=== PATIENT | female | born 1990 | race Caucasian/White ===

== ENCOUNTER 2017-07-05 09:25 | Emergency (ER) | payer BC, OTHER ==
[2017-07-05 09:40] VITALS: BP 129/84
--- NOTE | 2017-07-05 10:32 | UC ---
Skin Complaint HPI - HPI Summary HPI Summary: Pt reports a tick in right lateral abdomen that she tried to removed this morning and is concerned that the head is still attached. - History of Current Complaint Chief Complaint: UCBiteInjury Time Seen by Provider: 07/05/17 10:22 Stated Complaint: TICK BITE Hx Obtained From: Patient Hx Last Menstrual Period: 07/01/17 ?: No Onset/Duration: Sudden Onset Skin Exposure Onset/Duration: Hours Ago Timing: Constant Onset Severity: Mild Current Severity: Mild Location: Discrete - right lateral abdomen Aggravating Factor(s): Nothing Alleviating Factor(s): Unknown Associated Signs & Symptoms: Positive: Negative Related History: Insect Bite/Sting - tick - Allergy/Home Medications Allergies/Adverse Reactions: Allergies Allergy/AdvReac Type Severity Reaction Status Date / Time No Known Allergies Allergy Verified 07/05/17 09:36 Home Medications: Home Medications Ibuprofen TAB* [Advil TAB*] 400 mg PO Q6H PRN 07/05/17 [History Confirmed ] Review of Systems Constitutional: Negative Skin: Other - tick bite Eyes: Negative ENT: Negative Respiratory: Negative Cardiovascular: Negative Gastrointestinal: Negative Genitourinary: Negative Motor: Negative Neurovascular: Negative Musculoskeletal: Negative Neurological: Negative Psychological: Negative Is Patient Immunocompromised?: No All Other Systems Reviewed And Are Negative: Yes PMH/Surg Hx/FS Hx/Imm Hx Previously Healthy: Yes - Surgical History Surgical History: None - Family History Known Family History: Positive: Cardiac Disease - Social History Occupation: Employed Full-time Lives: With Family Alcohol Use: Occasionally Substance Use Type: None Smoking Status (MU): Never Smoked Tobacco Have You Smoked in the Last Year: No - Immunization History Most Recent Influenza Vaccination: Not the 2016/2017 Season Most Recent Tetanus Shot: 2014 Physical Exam Triage Information Reviewed: Yes Appearance: Well-Appearing Vital Signs: Initial Vital Signs Temp 98.4 F 07/05/17 09:35 Pulse 68 07/05/17 09:35 Resp 16 07/05/17 09:35 BP 129/84 07/05/17 09:35 Pulse Ox 100 07/05/17 09:35 Vital Signs Reviewed: Yes Eye Exam: Normal ENT Exam: Normal Neck exam: Normal Respiratory Exam: Normal Cardiovascular Exam: Normal Musculoskeletal Exam: Normal Neurological Exam: Normal Psychological Exam: Normal Skin Exam: Other - tiny, piece of palpable black presummably insect/tick, right lateral abdomen Course/Dx - Differential Diagnoses - Skin Complaint Differential Diagnoses: Foreign Body - insect/tick, Tick Born Illness - Diagnoses Provider Diagnoses: FB, retained insect/tick. tiny piece0 partial head or antenna. Pt was given instruction on how to monitor for worsening skin infection. Discharge - Discharge Plan Condition: Stable Disposition: HOME Prescriptions: DOXYcycline CAP(*) [DOXYcycline 100MG CAP(*)] 200 mg PO DAILY #2 cap Patient Education Materials: Tick Bite (ED) Referrals: Juli Davis MD [Primary Care Provider] - If Needed Additional Instructions: Please follow up with your PCP or return to clinic. Please continue to monitor for worsening signs and symptoms of infection.
== END 2017-07-05 10:42 | disposition home or self-care (01) ==
LOC: UCCORT 09:25
DX: S30.861A Insect bite (nonvenomous) of abdominal wall, initial encounter (principal); W57.XXXA Bitten or stung by nonvenomous insect and other nonvenomous arthropods, initial encounter; Y92.9 Unspecified place or not applicable
CPT/HCPCS: 99212; G0463